=== PATIENT | male | born 1980 | race Caucasian/White ===

== ENCOUNTER 2016-12-01 05:38 | Inpatient (IN) | payer OTHER ==
[~2016-12-01] VITALS: Ht 170.2 cm; Wt 86.0 kg
[2016-12-01 06:51] LABS: BASOPHIL % 0.3 % (0-2); PLATELET COUNT 342 x10^3mcL (130-400)
[2016-12-01 06:55] LABS: RED CELL DISTRIBUTION WIDTH 14.8 % (11.5-14.5)
[2016-12-01 07:10] LABS: UA SPECIFIC GRAVITY 1.025 (1.005-1.035); microscopic required? YES; urine erythrocyte TRACE (NEGATIVE)
[2016-12-01 07:24] LABS: CALCIUM 8.8 mg/dL (8.5-10.1); CARBON DIOXIDE 26.3 mmol/L (21-32); CHLORIDE SERUM 107 mmol/L (98-107); CREATININE SERUM 1.1 mg/dL (0.7-1.3); GFR1 > 60 mL/min; GLUCOSE SERUM 112 mg/dL (74-106); POTASSIUM SERUM 3.5 mmol/L (3.5-5.1); SODIUM SERUM 142 mmol/L (136-145)
[2016-12-01 07:32] LABS: ALBUMIN 3.5 g/dL (3.4-5.0); ALKALINE PHOSPHATASE 119 U/L (46-116); ALT/SGPT 21 U/L (16-63); AST/SGOT 7 U/L (15-37); BILIRUBIN TOTAL 0.1 mg/dL (0.20-1.00); LIPASE 233 IU/L (73-393); TOTAL PROTEIN, SERUM 7.6 g/dL (6.4-8.2)
[2016-12-01] MEDS ORDERED: LORAZEPAM2 MG (08:26)
[2016-12-01] MEDS ORDERED: GABAPENTIN100 M2 PO (08:26)
[2016-12-01] MEDS ORDERED: BACLOFEN10 MG PO (08:26)
[2016-12-01 09:55] LABS: T4(THYROXINE) 8.7 ug/dL (4.7-13.3)
[2016-12-01 09:58] LABS: AMPHETAMINE QUAL UR NONE DETECTED (NEG <=1000)
[2016-12-01 10:18] LABS: FREE T4 0.97 ng/dL (0.76-1.46)
[2016-12-01 11:01] LABS: CHOLESTEROL/HDL RATIO 3.7
[2016-12-01 12:35] VITALS: BP 145/93
[2016-12-01 13:08] LABS: T3 TOTAL 1.17 ng/mL
[2016-12-01 13:18] VITALS: BP 116/69
[2016-12-01 17:09] VITALS: BP 100/61
[2016-12-01 21:22] VITALS: BP 126/66
[2016-12-02 05:51] VITALS: BP 110/61
[2016-12-02 06:39] LABS: BASOPHIL % 0.6 % (0-2); PLATELET COUNT 281 x10^3mcL (130-400)
[2016-12-02 06:42] LABS: RED CELL DISTRIBUTION WIDTH 14.8 % (11.5-14.5)
[2016-12-02 06:48] LABS: CALCIUM 8.3 mg/dL (8.5-10.1); CARBON DIOXIDE 25.2 mmol/L (21-32); CHLORIDE SERUM 107 mmol/L (98-107); CREATININE SERUM 0.8 mg/dL (0.7-1.3); GFR1 > 60 mL/min; GLUCOSE SERUM 93 mg/dL (74-106); MAGNESIUM 1.8 mg/dL (1.8-2.4); PHOSPHOROUS 3.8 mg/dL (2.5-4.9); POTASSIUM SERUM 3.8 mmol/L (3.5-5.1); SODIUM SERUM 141 mmol/L (136-145)
[2016-12-02 08:30] VITALS: BP 103/60
[2016-12-02 12:58] VITALS: BP 120/77
[2016-12-02 17:10] VITALS: BP 107/63
[2016-12-02 21:36] VITALS: BP 114/71
[2016-12-03 06:06] VITALS: BP 91/50
[2016-12-03 06:20] LABS: BASOPHIL % 0.6 % (0-2); PLATELET COUNT 288 x10^3mcL (130-400)
[2016-12-03 06:23] LABS: CALCIUM 8.5 mg/dL (8.5-10.1); CARBON DIOXIDE 24.3 mmol/L (21-32); CHLORIDE SERUM 107 mmol/L (98-107); CREATININE SERUM 0.7 mg/dL (0.7-1.3); GFR1 > 60 mL/min; GLUCOSE SERUM 90 mg/dL (74-106); MAGNESIUM 1.8 mg/dL (1.8-2.4); POTASSIUM SERUM 3.9 mmol/L (3.5-5.1); SODIUM SERUM 142 mmol/L (136-145)
[2016-12-03 06:24] LABS: RED CELL DISTRIBUTION WIDTH 14.9 % (11.5-14.5)
[2016-12-03 12:39] VITALS: Ht 170.2 cm; Wt 86.0 kg
[2016-12-03 13:30] VITALS: BP 129/76
[2016-12-03 17:41] VITALS: BP 127/73
[2016-12-03 21:43] VITALS: BP 107/59
[2016-12-04 06:21] VITALS: BP 103/62
[2016-12-04 06:37] LABS: BASOPHIL % 0.3 % (0-2); PLATELET COUNT 267 x10^3mcL (130-400)
[2016-12-04 06:55] LABS: RED CELL DISTRIBUTION WIDTH 14.6 % (11.5-14.5)
[2016-12-04 09:42] VITALS: BP 101/57
[2016-12-04 13:52] VITALS: BP 105/62
[2016-12-04] MEDS ORDERED: BACLOFEN10 MG PO (14:17)
[2016-12-04 17:12] VITALS: BP 116/71
[2016-12-04 22:16] VITALS: BP 111/60
[2016-12-05 08:55] LABS: CALCIUM 7.9 mg/dL (8.5-10.1); CARBON DIOXIDE 29.1 mmol/L (21-32); CHLORIDE SERUM 108 mmol/L (98-107); CREATININE SERUM 0.7 mg/dL (0.7-1.3); GFR1 > 60 mL/min; POTASSIUM SERUM 3.4 mmol/L (3.5-5.1); SODIUM SERUM 142 mmol/L (136-145)
[2016-12-05 08:58] LABS: BASOPHIL % 0.5 % (0-2); PLATELET COUNT 219 x10^3mcL (130-400)
[2016-12-05 10:19] VITALS: BP 105/68
[2016-12-05 11:16] LABS: GLUCOSE SERUM 93 mg/dL (74-106)
[2016-12-05 16:40] VITALS: BP 112/60
[2016-12-05 21:56] VITALS: BP 109/63
[2016-12-06 05:25] VITALS: BP 111/73
[2016-12-06 06:11] LABS: BASOPHIL % 0.2 % (0-2); PLATELET COUNT 238 x10^3mcL (130-400); RED CELL DISTRIBUTION WIDTH 14.4 % (11.5-14.5)
[2016-12-06 06:26] LABS: CALCIUM 8.4 mg/dL (8.5-10.1); CARBON DIOXIDE 24.5 mmol/L (21-32); CHLORIDE SERUM 105 mmol/L (98-107); CREATININE SERUM 0.6 mg/dL (0.7-1.3); GFR1 > 60 mL/min; GLUCOSE SERUM 97 mg/dL (74-106); POTASSIUM SERUM 3.5 mmol/L (3.5-5.1); SODIUM SERUM 137 mmol/L (136-145)
[2016-12-06 08:50] VITALS: BP 106/58
[2016-12-06 23:04] VITALS: BP 116/72
[2016-12-07 06:24] VITALS: BP 112/73
[2016-12-07 07:03] LABS: BASOPHIL % 0.6 % (0-2); PLATELET COUNT 271 x10^3mcL (130-400)
[2016-12-07 07:04] LABS: RED CELL DISTRIBUTION WIDTH 14.8 % (11.5-14.5)
[2016-12-07 07:41] LABS: CALCIUM 8.8 mg/dL (8.5-10.1); CARBON DIOXIDE 27.9 mmol/L (21-32); CHLORIDE SERUM 104 mmol/L (98-107); CREATININE SERUM 0.8 mg/dL (0.7-1.3); GFR1 > 60 mL/min; GLUCOSE SERUM 88 mg/dL (74-106); POTASSIUM SERUM 3.8 mmol/L (3.5-5.1); SODIUM SERUM 139 mmol/L (136-145)
[2016-12-07 09:30] VITALS: BP 124/80
[2016-12-07] MEDS ORDERED: LEVAQUIN250 M1 PO (11:17)
[2016-12-07] MEDS ORDERED: COLACE100 MG PO (11:18)
[2016-12-07] MEDS ORDERED: NORCO 10-325 T1 EACH PO (11:18)
[2016-12-07] MEDS ORDERED: LAC PO (11:18)
[2016-12-07] MEDS ORDERED: SIMVASTATIN10 M1 PO (11:20)
[2016-12-07 11:57] VITALS: BP 124/80
== END 2016-12-07 13:40 | disposition home or self-care (01) | DRG 263 ==
LOC: ED 05:38 → MU 08:19 → DU 08:19 → MU 12-04 10:06
PROVIDERS: Emergency Medicine; Family Medicine; Surgery; ADMIT Family Medicine
PROC: 0FT44ZZ Resection of Gallbladder, Percutaneous Endoscopic Approach (ICD-10-PCS; principal; 2016-12-03 09:30)
DX: K80.80 Other cholelithiasis without obstruction (principal); N17.0 Acute kidney failure with tubular necrosis; G82.50 Quadriplegia, unspecified; E43 Unspecified severe protein-calorie malnutrition; G82.20 Paraplegia, unspecified; E87.8 Other disorders of electrolyte and fluid balance, not elsewhere classified; N39.0 Urinary tract infection, site not specified; V29.9XXS Motorcycle rider (driver) (passenger) injured in unspecified traffic accident, sequela; J45.909 Unspecified asthma, uncomplicated; E78.5 Hyperlipidemia, unspecified; Z68.29 Body mass index [BMI] 29.0-29.9, adult; D64.9 Anemia, unspecified; F32.9 Major depressive disorder, single episode, unspecified; E87.6 Hypokalemia; E83.52 Hypercalcemia
CPT/HCPCS: 83880; 84439; 94150; 97110-GP; 97530-GP; J0690; J0696; J1170; J1885; J2250; J2270; J2405; J2704; J3010; J3490; J7030; J7120; Q0092

== ENCOUNTER 2017-02-26 16:22 | Emergency (ER) | payer OTHER ==
[~2017-02-26] VITALS: Ht 167.6 cm; Wt 86.2 kg
[~2017-02-26 16:22] MED LIST: BACLOFEN10 MG PO; COLACE100 MG PO; GABAPENTIN100 M2 PO; LAC PO; LEVAQUIN250 M1 PO; LORAZEPAM2 MG; NORCO 10-325 T1 EACH PO; SIMVASTATIN10 M1 PO
[2017-02-26 18:19] VITALS: BP 132/96
== END 2017-02-26 18:49 | disposition home or self-care (01) ==
LOC: ED 16:22
DX: S06.899A Other specified intracranial injury with loss of consciousness of unspecified duration, initial encounter (principal); W22.8XXA Striking against or struck by other objects, initial encounter; Y93.89 Activity, other specified; Y99.8 Other external cause status; Y92.89 Other specified places as the place of occurrence of the external cause